=== PATIENT | female | born 1990 | race Caucasian/White ===

== ENCOUNTER → 2018-01-04 | Outpatient (CLI) | payer OTHER ==
[2016-10-13 16:15] VITALS: BP 113/63
[~2018-01-04] MED LIST: IBUP800T19 PO
--- NOTE | 2018-01-04 10:52 | RAD ---
DATE: January 04, 2018 EXAM: DIGITAL DIAGNOSTIC BILATERAL, BREAST RIGHT HISTORY: Palpable lump of the right breast found by the patient's physician COMPARISON: None. Baseline study. This study was interpreted with the benefit of Computerized Aided Detection (CAD). DIAGNOSTIC BILATERAL MAMMOGRAPHIC FINDINGS: In addition to the CC and MLO digital mammographic views of both breasts, focal digital compression views of the right breast in the 90 degree and CC projections were performed in the area of the palpable lump. ] A metallic BB was placed on the palpable lump of the right breast as indicated by the patient. The breast parenchyma is very dense. There are no dominant suspicious masses, suspicious microcalcifications or evidence of architectural distortion. No focal mammographic abnormality is seen in the area of the palpable lump on the focal compression views. RIGHT BREAST SONOGRAPHY: High-resolution sonography of the right breast from the 8:00 to 10:00 position in the area of palpable lump as indicated by the patient was performed. Dense echogenic breast parenchyma is seen. No focal mammographic abnormality is seen. IMPRESSION: No mammographic indicators for malignancy. With regard to any palpable lump, follow-up should be clinical therefore. BI-RADS CATEGORY: 1 NEGATIVE RECOMMENDED FOLLOW-UP: CLIN FOLLOW UP IMAGING CLINICALLY INDICATED PQRS compliance statement: Patient information was entered into a reminder system with a target due date January 06, 2024 for the next mammogram. Mammography is a sensitive method for finding small breast cancers, but it does not detect them all and is not a substitute for careful clinical examination. A negative mammogram does not negate a clinically suspicious finding and should not result in delay in biopsying a clinically suspicious abnormality. "Our facility is accredited by the [employer] Mammography [employer]." The patient's breast density may affect the ability of mammography to detect breast cancer. There are 4 categories of breast density, A, B, C and D. Breast density A means that most of the breast tissue is replaced with adipose tissue and therefore is not dense. Breast density B means that the breast tissue is mildly dense and scattered. Breast density C means that the breast tissue is heterogeneously dense. Breast density D means that the breast tissue is very dense. Breast densities especially C and D may decrease the sensitivity of mammography to detect breast cancer. Therefore, the patient may benefit from 3-D breast mammography (3D breast tomography) as a part of their screening mammogram. Insurance may or may not pay for this additional imaging. The patient's breast density based on today's mammogram is category D.
== END | disposition home or self-care (01) ==
LOC: MAMMO 08:50
PROVIDERS: ATTEND Nurse Practitioner Family
DX: N63.10 Unspecified lump in the right breast, unspecified quadrant (principal); R92.8 Other abnormal and inconclusive findings on diagnostic imaging of breast
CPT/HCPCS: 76641; 77066

== ENCOUNTER → 2018-01-25 | Outpatient (CLI) | payer OTHER ==
[2016-10-13 16:15] VITALS: BP 113/63
[~2018-01-25] MED LIST changes: +BUPIVACAINE MPF 0.5% 30 ML VIAL. ONE; +LIDOCAINE 1% PF 30 ML VIAL. ONE
== END | disposition home or self-care (01) ==
LOC: SURG 12:02
PROVIDERS: ATTEND Anesthesiology Pain Medicine
DX: M47.816 Spondylosis without myelopathy or radiculopathy, lumbar region (principal)
CPT/HCPCS: 64493; 64494; J2001; J3490

== ENCOUNTER → 2018-06-15 | Outpatient (CLI) | payer OTHER ==
[2016-10-13 16:15] VITALS: BP 113/63
[~2018-06-15] MED LIST changes: +BUPIVACAINE MPF 0.25% 10 ML VIAL. ONE; -BUPIVACAINE MPF 0.5% 30 ML VIAL. ONE; +DEXAMETHASONE SOD PHOS 4 MG/ML VIAL ONE; +IOHEXOL 300 MG/ML 50 ML VIAL. ONE
== END | disposition home or self-care (01) ==
LOC: SURG 12:32
PROVIDERS: ATTEND Anesthesiology Pain Medicine
DX: M54.16 Radiculopathy, lumbar region (principal)
CPT/HCPCS: 64483; 64484; J1100; J2001; J3490; Q9967